=== PATIENT | female | born 1980 | race American Indian/Alaskan Native ===

== ENCOUNTER 2021-02-23 09:04 | Emergency (ER) | payer MEDICAID, OTHER ==
[2021-02-23 09:35] VITALS: BP 161/101
[2021-02-23] MEDS ORDERED: TETRACAINE 0.5% OPHTH SOLN 4ML OU STA (11:21)
[2021-02-23] MEDS ORDERED: FLUORESCEIN 1 MG STRIP OP ONE (11:21)
--- NOTE | 2021-02-23 11:22 | Emergency Department Report ---
ED Eye Problem HPI - General Chief complaint: Eye Problems Stated complaint: SOMETHING IN RIGHT EYE Time Seen by Provider: 02/23/21 11:13 Source: patient Mode of arrival: Ambulatory Limitations: No Limitations - History of Present Illness Initial comments: 40-year-old female presents to the ER today with complaints of right eye redness and pain. Patient states that she woke up this morning with a "gritty" sensation in her right eye. She states that she feels like she have dirt in her eye but does not recall injuring her eye in any way or getting anything in her eye. She also reports associated redness to her eye, pain and mild itching and increased tearing. She states that she has normal blurry vision to both eyes and she is supposed to be wearing glasses but currently does not have any glasses. She does not wake up contact. she reports mild increase in blurry vision to her right eye since this morning. She denies any crusting or matting. She denies any recent URI symptoms. She denies any fever, chills, headache or any other symptoms at this time. She denies any grinding or welding. MD chief complaint: eye pain, eye redness, vision change, foreign body -: Gradual (this mornining) - Related Data Previous Rx's Medication Instructions Recorded Last Taken Type Acetaminophen/Codeine [Tylenol 1 tab PO Q6H PRN #12 tab 02/23/21 Unknown Rx /Codeine # 3 tab] Tobramycin 0.3% [Tobrex] 2 drop OD Q4HR 7 Days #1 bottle 02/23/21 Unknown Rx Allergies Allergy/AdvReac Type Severity Reaction Status Date / Time latex Allergy Unknown Verified 02/23/21 09:29 ED Review of Systems ROS: Stated complaint: SOMETHING IN RIGHT EYE Other details as noted in HPI Comment: All other systems reviewed and negative Constitutional: denies: chills, fever Eyes: eye pain, eye discharge, vision change ENT: denies: ear pain, throat pain Respiratory: denies: cough, shortness of breath, SOB with exertion, SOB at rest, wheezing Cardiovascular: denies: chest pain, palpitations, dyspnea on exertion, edema, syncope, paroxysmal nocturnal dyspnea Gastrointestinal: denies: abdominal pain, nausea, vomiting, diarrhea, constipation, hematemesis, hematochezia Genitourinary: denies: urgency, dysuria, frequency, hematuria, discharge, abnormal menses, dyspareunia Musculoskeletal: denies: back pain, joint swelling, arthralgia, myalgia Skin: denies: rash, lesions, change in color, change in hair/nails, pruritus Neurological: denies: headache, weakness, paresthesias, confusion, abnormal gait, vertigo Psychiatric: denies: anxiety, depression, auditory hallucinations, visual hallucinations, homicidal thoughts, suicidal thoughts Hematological/Lymphatic: denies: easy bleeding, easy bruising ED Past Medical Hx - Past Medical History Hx Hypertension: Yes Hx Diabetes: No Hx Deep Vein Thrombosis: No Hx Renal Disease: No Hx Sickle Cell Disease: No Hx Seizures: No Hx Asthma: No Hx HIV: No - Surgical History Past Surgical History?: No - Social History Smoking Status: Never Smoker - Medications Home Medications: Home Medications Medication Instructions Recorded Confirmed Last Taken Type Acetaminophen/Codeine [Tylenol 1 tab PO Q6H PRN #12 tab 02/23/21 Unknown Rx /Codeine # 3 tab] Tobramycin 0.3% [Tobrex] 2 drop OD Q4HR 7 Days #1 bottle 02/23/21 Unknown Rx ED Physical Exam - General Limitations: No Limitations General appearance: alert, in no apparent distress - Head Head exam: Present: atraumatic, normocephalic, normal inspection - Eye Eye exam: Present: PERRL, EOMI, conjunctival injection (mild right eye ), other (right eye urrutia lamp exam -- small C shaped laceration noted about 6/7 oclock of cornea to right eye). Absent: scleral icterus, periorbital swelling, periorbital tenderness Pupils: Present: normal accommodation - Expanded Eye Exam Expanded Sclera/Conjunctival: Injection: Right Anterior chamber: Normal Inspection: Bilateral Posterior chamber: Deferred: Bilateral Visual acuity (R) = 20/: 50 Visual acuity (L) = 20/: 40 With correction: No - ENT ENT exam: Present: normal exam, mucous membranes moist ED Course Vital Signs 02/23/21 02/23/21 09:32 09:34 Temperature 99.0 F 99 F Pulse Rate 76 75 Respiratory 20 20 Rate Blood Pressure 163/101 Blood Pressure 161/101 [Right] O2 Sat by Pulse 95 95 Oximetry ED Medical Decision Making - Medical Decision Making Exam today concerning for corneal abrasion seen on Urrutia lamp exam. Patient currently not in any acute distress. She is not toxic or ill-appearing. She is neurologically intact with a normal gait. Discussed diagnosis of corneal abrasion with patient and treatment plan. She will be started on antibiotic eyedrops and given referral to outpatient ophthalmology for follow-up especially if her symptoms persist. Patient blood pressure noted to be elevated today, but she admits that she did not take any of her blood pressure medication prior to coming into the ER. She currently has no symptoms related to blood pressure such as chest pain, tisha rtness of breath, headache or dizziness. Therefore there is no indication for any additional work-up or testing at this time or emergent blood pressure treatment. Patient instructed to take her blood pressure medication as soon as she gets home. Patient expressed understanding of all instructions and agreed with plan. Patient was stable at time of discharge. Critical care attestation.: If time is entered above; I have spent that time in minutes in the direct care of this critically ill patient, excluding procedure time. ED Disposition Clinical Impression: Corneal abrasion, right, Conjunctivitis Disposition: DC- TO HOME OR SELFCARE Is pt being admited?: No Does the pt Need Aspirin: No Condition: Stable Instructions: Corneal Abrasion, [id number] Additional Instructions: Use antibiotic eyedrops as prescribed. Follow-up closely with the account installation specialist listed on discharge instructions if symptoms not any better in the next 5 to 7 days. Return to the ER if your symptoms worsens or changes in any way. 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
== END 2021-02-23 12:45 | disposition home or self-care (01) ==
LOC: ED 09:04
DX: S05.01XA Injury of conjunctiva and corneal abrasion without foreign body, right eye, initial encounter (principal); H10.9 Unspecified conjunctivitis; X58.XXXA Exposure to other specified factors, initial encounter; Y93.9 Activity, unspecified; Y92.89 Other specified places as the place of occurrence of the external cause; Y99.8 Other external cause status
CPT/HCPCS: 99282